=== PATIENT | female | born 1950 | race Caucasian/White ===

== ENCOUNTER → 2024-05-27 | Outpatient (CLI) | payer MEDICARE, BC, SELFPAY ==
[2024-05-27 11:41] LABS: Basophils # (Auto) 0.1 Thou/mm3 (0.0-0.2); Basophils % (Auto) 1 % (0-2.5); Eosinophils # (Auto) 0.1 Thou/mm3 (0.0-0.5); Eosinophils % (Auto) 2 % (0-10); Hematocrit 40.1 % (36.0-46.0); Hemoglobin 13.3 g/dL (12.0-16.0); Immature Granulocytes % (Auto) 0 % (0-0); Immature Granulocytes Auto 0.02 Thou/mm3 (0.00-0.00); Lymphocytes # (Auto) 1.3 Thou/mm3 (1.0-4.8); Lymphocytes % (Auto) 19 % (10-50); Mean Corpuscular HGB Conc 33.2 g/dl (31.0-37.0); Mean Corpuscular Hemoglobin 30.7 pg (25.0-35.0); Mean Corpuscular Volume 93 fL (80-100); Monocytes # (Auto) 0.4 Thou/mm3 (0.0-0.8); Monocytes % (Auto) 6 % (0-12); Neutrophils # (Auto) 4.7 Thou/mm3 (1.8-7.7); Neutrophils % (Auto) 72 % (37-80); Nucleated Red Blood Cell % 0 /100 WBC (0); Platelet Count 260 Thou/mm3 (140-440); RDW Standard Deviation 44.1 fL (36.4-46.3); Red Blood Count 4.33 Miln/mm3 (4.00-5.20); White Blood Count 6.5 Thou/mm3 (3.6-11.0)
[2024-05-27 11:47] LABS: Glucose Estimated Average 151 mg/dL (80-131); Hemoglobin A1C 6.9 % Hgb (4.8-6.0)
[2024-05-27 11:54] LABS: T4 (Thyroxine) 9.1 mcg/dL (4.5-10.9)
[2024-05-27 12:11] LABS: Alanine Aminotransferase 25 U/L (10-49); Albumin, Serum 4.4 gm/dL (3.4-4.8); Albumin/Globulin Ratio 2.4 (1.2-2.2); Alkaline Phosphatase 105 U/L (46-116); Anion Gap 6 (7-16); Aspartate Amino Transferase 36 U/L (0-34); BUN/Creatinine Ratio 27 Ratio (12-20); Blood Urea Nitrogen 19 mg/dL (9-23); Calcium 9.4 mg/dL (8.3-10.6); Calcium (Corrected) 9.4 mg/dL (8.5-10.1); Carbon Dioxide 30.2 mMol/L (20.0-31.0); Cardiac Risk Estimate 2.1 RATIO (3.7-5.6); Chloride 106 mMol/L (98-107); Cholesterol 193 mg/dL (132-200); Creatinine (Component) 0.7 mg/dL (0.6-1.3); Globulin 1.8 gm/dL (2.3-3.5); Glucose 67 mg/dL (74-106); HDL Cholesterol 94 mg/dL (40-60); LDL Cholesterol,Calculated 85 mg/dL (0-130); Osmolality,Calculated 283 (275-295); Potassium 4.2 mMol/L (3.4-5.1); Sodium 142 mMol/L (136-145); Thyroid Stimulating Hormone 1.36 uIU/mL (0.55-4.78); Total Protein 6.2 gm/dL (5.7-8.2); Triglycerides 72 mg/dL (30-150); eGFR > 60 See Note
[2024-05-27 12:27] LABS: Bilirubin,Total 0.7 mg/dL (0.3-1.2)
== END | disposition home or self-care (01) ==
LOC: COPL 10:25
PROVIDERS: PCP Family Medicine; Referring Provider Family Medicine; Visit Provider Family Medicine
DX: E11.9 Type 2 diabetes mellitus without complications (principal); I10 Essential (primary) hypertension; E03.9 Hypothyroidism, unspecified; E78.2 Mixed hyperlipidemia
CPT/HCPCS: 36415; 80053; 80061; 83036; 84436; 84443; 85025

== ENCOUNTER → 2024-11-02 | Outpatient (CLI) | payer MEDICARE, BC, SELFPAY ==
--- NOTE | 2024-11-02 12:56 | XR_ITS ---
Examination: Shoulder,right, 3 views Technique: Shoulder AP internal rotation, AP external rotation, Y view shoulder, 3 views Exam date and time :November 02, 2024 1302 hours INDICATIONS: Right shoulder pain beginning 12 months ago. FINDINGS: Moderate osteoarthritis glenohumeral joint Mild calcific tendinitis No fracture or shoulder dislocation IMPRESSION: Moderate osteoarthritis glenohumeral joint Mild calcific tendinitis
== END | disposition home or self-care (01) ==
LOC: CDIM 12:49
PROVIDERS: PCP Family Medicine; Referring Provider Nurse Practitioner Family; Visit Provider Nurse Practitioner Family
DX: M19.011 Primary osteoarthritis, right shoulder (principal); M75.31 Calcific tendinitis of right shoulder
CPT/HCPCS: 73030

== ENCOUNTER → 2025-01-05 | Outpatient (CLI) | payer MEDICARE, BC, SELFPAY ==
[2025-01-05 10:23] LABS: T4 (Thyroxine) 10.8 mcg/dL (4.5-10.9)
[2025-01-05 10:27] LABS: Alanine Aminotransferase 53 U/L (10-49); Albumin, Serum 4.1 gm/dL (3.4-4.8); Albumin/Globulin Ratio 2.0 (1.2-2.2); Alkaline Phosphatase 90 U/L (46-116); Anion Gap 9 (7-16); Aspartate Amino Transferase 69 U/L (0-34); BUN/Creatinine Ratio 16 Ratio (12-20); Bilirubin,Total 0.7 mg/dL (0.3-1.2); Blood Urea Nitrogen 11 mg/dL (9-23); Calcium 8.8 mg/dL (8.3-10.6); Calcium (Corrected) 8.8 mg/dL (8.5-10.1); Carbon Dioxide 27.7 mMol/L (20.0-31.0); Chloride 108 mMol/L (98-107); Creatinine (Component) 0.7 mg/dL (0.6-1.3); Globulin 2.1 gm/dL (2.3-3.5); Glucose 121 mg/dL (74-106); Osmolality,Calculated 289 (275-295); Potassium 4.3 mMol/L (3.4-5.1); Sodium 145 mMol/L (136-145); Thyroid Stimulating Hormone 0.07 uIU/mL (0.55-4.78); Total Protein 6.2 gm/dL (5.7-8.2); eGFR > 60 See Note
[2025-01-05 10:31] LABS: Glucose Estimated Average 148 mg/dL (80-131); Hemoglobin A1C 6.8 % Hgb (4.8-6.0)
== END | disposition home or self-care (01) ==
LOC: COPL 09:07
PROVIDERS: PCP Family Medicine; Referring Provider Family Medicine; Visit Provider Family Medicine
DX: R41.89 Other symptoms and signs involving cognitive functions and awareness (principal); E03.9 Hypothyroidism, unspecified; E11.9 Type 2 diabetes mellitus without complications; I10 Essential (primary) hypertension
CPT/HCPCS: 36415; 80053; 83036; 84436; 84443

== ENCOUNTER 2025-02-13 13:30 | Emergency (ER) | payer MEDICARE, BC, SELFPAY ==
[2025-02-13 13:37] VITALS: BP 122/72; PULSE 89; RESP 19; TEMP 36.4; O2SAT 99
[2025-02-13 13:38] VITALS: PULSE 92; RESP 16; O2SAT 95; BMI 26.6
[2025-02-13 14:22] LABS: Basophils # (Auto) 0.0 Thou/mm3 (0.0-0.2); Basophils % (Auto) 1 % (0-2.5); Eosinophils # (Auto) 0.1 Thou/mm3 (0.0-0.5); Eosinophils % (Auto) 2 % (0-10); Hematocrit 40.1 % (36.0-46.0); Hemoglobin 13.5 g/dL (12.0-16.0); Immature Granulocytes Auto 0.01 Thou/mm3 (0.00-0.00); Lymphocytes # (Auto) 1.8 Thou/mm3 (1.0-4.8); Lymphocytes % (Auto) 38 % (10-50); Mean Corpuscular HGB Conc 33.7 g/dl (31.0-37.0); Mean Corpuscular Hemoglobin 30.5 pg (25.0-35.0); Mean Corpuscular Volume 91 fL (80-100); Monocytes # (Auto) 0.4 Thou/mm3 (0.0-0.8); Monocytes % (Auto) 8 % (0-12); Neutrophils # (Auto) 2.4 Thou/mm3 (1.8-7.7); Neutrophils % (Auto) 51 % (37-80); Nucleated Red Blood Cell # 0.00 Thou/mm3 (0.00-0.00); Nucleated Red Blood Cell % 0 /100 WBC (0); Platelet Count 225 Thou/mm3 (140-440); RDW Standard Deviation 42.5 fL (36.4-46.3); Red Blood Count 4.42 Miln/mm3 (4.00-5.20); White Blood Count 4.7 Thou/mm3 (3.6-11.0)
[2025-02-13 15:11] LABS: Acetaminophen < 2.0 mcg/mL (10.0-20.0); Alanine Aminotransferase 59 U/L (10-49); Albumin, Serum 4.1 gm/dL (3.4-4.8); Albumin/Globulin Ratio 2.2 (1.2-2.2); Alcohol, Blood Medical 249.7 mg/dL (0-10.0); Alkaline Phosphatase 90 U/L (46-116); Anion Gap 14 (7-16); Aspartate Amino Transferase 85 U/L (0-34); BUN/Creatinine Ratio 14 Ratio (12-20); Bilirubin,Total 0.5 mg/dL (0.3-1.2); Blood Urea Nitrogen 10 mg/dL (9-23); Calcium 9.7 mg/dL (8.3-10.6); Calcium (Corrected) 9.7 mg/dL (8.5-10.1); Carbon Dioxide 22.2 mMol/L (20.0-31.0); Chloride 107 mMol/L (98-107); Creatinine (Component) 0.7 mg/dL (0.6-1.3); Estimated Creatinine Clearance 71.8 mL/min (>60); Globulin 1.9 gm/dL (2.3-3.5); Glucose 160 mg/dL (74-106); Lipase 19 U/L (12-53); Osmolality,Calculated 286 (275-295); Potassium 3.8 mMol/L (3.4-5.1); Salicylate < 3.0 mg/dL; Sodium 143 mMol/L (136-145); Thyroid Stimulating Hormone 0.08 uIU/mL (0.55-4.78); Total Protein 6.0 gm/dL (5.7-8.2); eGFR > 60 See Note
--- NOTE | 2025-02-13 15:49 | PD.EDPSYCH ---
ED Psych RME/HPI General Chief Complaint: Psychiatric Symptoms Stated Complaint: OD Time Seen by Provider: 02/13/25 13:34 Source: patient and EMS Arrival date/time: 02/13/25 13:30 Mode of arrival: EMS Limitations: no limitations RME / HPI RME / HPI Narrative: 74 year old female who is brought in by EMS for reported suicide attempt. Patient states she drank 4 shots of [place] whiskey and took 2 tablets of Valium 10 mg 30 minutes prior to her arrival. 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 Her daughter was in this hospital and this morning. When asked why she took 2 tablets of valium patient responds I wanted to be with my daughter . Patient has known history of HTN, hypothyroidism, insulin dependant diabetes, and insomnia. Related Data Home Medications ?Medication ?Instructions ?Recorded ?Confirmed insulin glargine 100 unit/mL 35 unit subcut HS #0 vials 10/08/14 02/11/23 subcutaneous solution (Lantus U-100 Insulin) insulin lispro 100 unit/mL 10 - 25 unit subcut PRN #0 vials 10/08/14 02/11/23 subcutaneous solution (Humalog U-100 Insulin) levothyroxine 125 mcg tablet 125 mcg PO QDAY 03/14/18 02/11/23 (Synthroid) ezetimibe 10 mg tablet 10 mg PO QDAY 01/31/21 02/11/23 losartan 50 mg tablet 50 mg PO QDAY 01/31/21 02/11/23 Allergies Allergy/AdvReac Type Severity Reaction Status Date / Time codeine Allergy Severe VOMITING, Verified 02/13/25 13:50 NAUSEA Penicillins Allergy Severe Nausea Verified 02/13/25 13:50 phenytoin Allergy Mild Rash Verified 02/13/25 13:50 Review of Systems Review of Systems Systems Reviewed: All systems reviewed, normal except as documented ED Exam General Limitations: Present no limitations General appearance: Present alert and in no apparent distress Head Head exam: Present atraumatic Eye Eye exam: Present normal appearance, PERRL and EOMI ENT ENT exam: Present normal exam and normal oropharynx Neck Neck exam: Present normal inspection, full ROM and trachea midline Chest Chest inspection: Present normal inspection and symmetric chest wall rise Respiratory Respiratory exam: Present normal lung sounds bilaterally Cardiovascular Cardiovascular exam: Present regular rate, normal rhythm and normal heart sounds Abdominal Exam Abdominal exam: Present soft and normal bowel sounds Extremities Exam Extremities exam: Present normal inspection and full ROM Back Exam Back exam: Present normal inspection and full ROM Neurological Exam Neurological exam: Present alert and oriented X3 Psychiatric Psychiatric exam: Present depressed, agitated, anxious and other (patient is tearful, when she intially brougth in she was yelling I want to be my daughter and they killed her over and over. ) Skin Skin exam: Present warm, dry, intact and normal color Course Quality Measures none Orders Category Date Time Status 1798 Psychiatric Hold NOW Care 02/13/25 17:45 Ordered Consult Manager Medical Writing NOW Care 02/13/25 13:35 Active Suicide precautions NOW Care 02/13/25 13:35 Active Acetaminophen Stat Lab 02/13/25 14:10 Completed Alcohol, Blood Medical Stat Lab 02/13/25 14:10 Completed CBC Stat Lab 02/13/25 14:10 Completed CMP [Comprehensive Metabolic Panel] Stat Lab 02/13/25 14:10 Completed Drug Screen,Urine Stat Lab 02/13/25 18:54 Completed Lipase Stat Lab 02/13/25 14:10 Completed Salicylate Stat Lab 02/13/25 14:10 Completed TSH [Thyroid Stimulating Hormone] Stat Lab 02/13/25 14:10 Completed UA, C/S IF [Urinalysis, C/S if Indicated] Stat Lab 02/13/25 18:54 Completed Vital Signs Vital signs: Vital Signs Temperature 97.6 F 02/13/25 13:37 Pulse Rate 89 02/13/25 13:37 Respiratory Rate 19 02/13/25 13:37 Blood Pressure 122/72 02/13/25 13:37 Pulse Oximetry (%) 99 02/13/25 13:37 Oxygen Delivery Method Room Air 02/13/25 13:37 Psych MDM Narrative MDM Narrative:: 74 year old female who is brought in by EMS for reported suicide attempt. Patient states she drank 4 shots of [place] whiskey and took 2 tablets of Valium 10 mg 30 minutes prior to her arrival. 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 Her daughter was in this hospital and this morning. When asked why she took 2 tablets of valium patient responds I wanted to be with my daughter . Patient has known history of HTN, hypothyroidism, insulin dependant diabetes, and insomnia. During the ER course, gordo oneal was contacted and the recommendations were follow-up. Patient's alcohol level was found to be elevated at 249. Her CBC was unremarkable. Metabolic panel revealed hyperglycemia at 160, liver enzymes are elevated with AST of 85, ALT 59, alk phos within normal limits. TSH was 0.08. Patient has known hypothyroidism. During the ER course, patient symptoms did improve. She metabolized her alcohol and was answering questions appropriately. She was seen, evaluated, and cleared by her our social services director. Patient does have a close family network. She was accompanied at bedside with family. Her sister will stay with her temporarily. Family states they have cleared her home with any medications that she might potentially overdose on. Patient was advised to follow-up with her primary doctor. Seek follow-up appointments with therapy. Return to emergency room anytime for any worsening or emergent changes. Patient data External records reviewed:: EMS form Clinical information provided by:: patient and EMS Social determinants that could affect healthcare access:: none Patient has the following chronic illnesses:: Hypertension, hypothyroidism, diabetes How is presenting disease/condition affected by chronic disease/condition?: uneffected by Evaluation data The following diagnostics were reviewed and interpreted by me:: lab results Lab and/or radiology exams considered but not ordered:: n/a Interpretation Summary: Work was unremarkable with the exception of a positive alcohol screen Medications / Prescriptions Medications or Prescriptions considered but not ordered:: n/a Medication administrations:: n/a Consultations Consultation(s) initiated? (list below): Yes Diagnosis Psych Differential Diagnosis: acute psychosis, suicidal ideation, bipolar disorder, depression, drug-induced psychotic disorder and acute anxiety Most likely diagnosis given after review of the tests above:: Grief reaction, alcohol abuse, suicide ideation Admission Indicated Admission indicated?: not indicated Admission Request Was there a request for admission?: No Disposition Plan Disposition Plan: Discharge Discharge Attestation Discharge Attestation: The patient and all family members were given an opportunity to ask questions and understood the discharge instructions. Discharge instructions specifically effects, indications for sooner follow up or return to the emergency department, and the expected course of current diagnosis. Patient condition: Stable Discharge Plan Plan Patient Disposition: HOME (Self Care) Patient condition on transfer: Stable Prescriptions/Referrals Prescriptions/Med Rec: No Action insulin glargine [Lantus U-100 Insulin] 100 U/ML solution 35 unit Sub-Q HS Qty: 0 insulin lispro [Humalog U-100 Insulin] 100 U/ML solution 10 - 25 unit Sub-Q PRN Qty: 0 levothyroxine [Synthroid] 125 mcg Tablet 125 mcg PO QDAY losartan 50 mg tablet 50 mg PO QDAY Patient Comments: TAKE 1 TABLET BY MOUTH EVERY DAY ezetimibe 10 mg tablet 10 mg PO QDAY Patient Comments: TAKE 1 TABLET BY MOUTH EVERY DAY Referrals: No Primary/Family,Physician [Primary Care Provider] - In 1 week Problem List Clinical Impression: Suicidal ideation, Grief reaction, Alcohol abuse Patient/Caregiver Discharge Instructions Education Materials: ED Grief Reaction, Depression and Suicide Additional Instructions: - Contact your primary doctor on Saturday to schedule close follow-up appointment. - I do believe you benefit from follow-up appointments with a therapist for cognitive behavioral therapy. - Refrain from alcohol or substance abuse. - Please contact 911 or return to the emergency room at anytime for any worsening changes in school including increased thoughts of suicide. Print Language: Kazakh Stand Alone Forms: [employer] Award Info., Patient Portal Info Letter
[2025-02-13 17:00] VITALS: BP 127/70; PULSE 95; RESP 18; TEMP 36.3; O2SAT 97
--- NOTE | 2025-02-13 17:12 | PC.NURSE ---
POISON CONTROL AND [place] SPOKE OVER THE PHONE; NO FURTHER ORDERS AT THIS TIME.
[2025-02-13 17:55] VITALS: BP 135/67; PULSE 80; RESP 18; TEMP 36.6; O2SAT 100
--- NOTE | 2025-02-13 18:54 | PC.CC ---
Patient is a 74 year-old female who presents to the hospital for a mental health evaluation due to taking 2 tablets of valium and ingesting alcohol. AMFT Amber made [id number] contact with patient to complete assessment. AMFT introduced self, role, and reason for assessment. AMFT disclosed limits of confidentiality as well. Patient appeared alert and oriented to self, place, and situation. At bedside was patient?s son in law Krunal Prado [phone]. Patient made appropriate eye contact with this hand sign writer. Patients mood appeared to be euthymic and remained engaged in assessment, patient had good insight and judgement. No signs of delusions, paranoid or V/H. Patient reports her daughter in the morning and her plan was to go home and sleep rest. When she was unable to sleep Pt reports she had a couple drinks and took 2 valium tablets to sleep. Pt reports she did not have intention to end life and just needed to sleep. Patient had a [place] screening completed at the time of arrival at the hospital, the outcome was High Risk. Carbon Printer reviewed [place] scale that was completed at Pt arrival- Pt denied current plan/intent to end life, does not wish to , and is willing and wanting to safety plan. Carbon Printer engaged family member and reviewed [place] scale and role/resposibility of safety planning in order to ensure Pt safety and wellbeing, son in law Krunal Prado [phone] agreed to safety plan with Pt and hand sign writer and reported family is all in agreement to safety plan and had gone to Pt home and removed all sharps/medication in order to ensure safety and a family member will remain with Pt. Upon clinical consultation with [facility], Kezia Burt patient does meet criteria for 5150-Hold. AMFT communicated outcome with all adult parties and all are in agreement with safety planning. AMFT provided update ER doctor, business project analyst Alisa, and all in agreement to safety plan.
[2025-02-13 18:58] LABS: Collection Type, Urine Voided
[2025-02-13 19:04] LABS: Bilirubin,Urine Negative (Negative); Blood,Urine Negative (Negative); Clarity,Urine Clear (Clear/Hazy); Color,Urine Lt-Yellow (Lt Yel-Yel); Culture Indicated,Urine Not Indicated; Glucose, Urine Negative (Negative); Ketones,Urine 1+ (Negative); Leukocyte Esterase,Urine Negative (Negative); Nitrite,Urine Negative (Negative); PH,Urine 5.5 (5.0-7.0); Protein,Urine Negative (Neg - Trace); RBC,Urine 1 /hpf (0-3); Specific Gravity,Urine 1.009 (1.001-1.035); Squamous Epithelial Cell,Urine < 1 /hpf (0-5); Urobilinogen,Urine Negative mg/dL (0.0-1.0); WBC,Urine 1 /hpf (0-5)
[2025-02-13 20:03] VITALS: BP 135/65; PULSE 86; RESP 20; TEMP 37.1; O2SAT 93
[2025-02-13 21:16] LABS: Amphetamine/Methamp Scrn,U Negative (Negative); Barbiturate Screen,Urine Negative (Negative); Benzodiazepines Screen,Urine Positive (Negative); Benzoylecgonine Screen, Ur Negative (Negative); Fentanyl Screen,Urine Negative (Negative); Opiate Screen,Urine Negative (Negative); THC Screen,Urine Negative (Negative)
== END 2025-02-13 21:26 | disposition home or self-care (01) ==
PROVIDERS: Physician Assistant Medical; Emergency Provider Emergency Medicine
DX: R45.851 Suicidal ideations (principal); F43.20 Adjustment disorder, unspecified; E11.9 Type 2 diabetes mellitus without complications; E03.9 Hypothyroidism, unspecified; I10 Essential (primary) hypertension; G47.00 Insomnia, unspecified
CPT/HCPCS: 36415; 80053; 80307; 80320; 80329; 81001; 83690; 84443; 85025; 96127; 99284; G0480

== ENCOUNTER → 2025-04-06 | Outpatient (CLI) | payer MEDICARE, BC, SELFPAY ==
[2025-04-06 10:36] LABS: Alanine Aminotransferase 32 U/L (10-49); Albumin, Serum 4.4 gm/dL (3.4-4.8); Albumin/Globulin Ratio 1.8 (1.2-2.2); Alkaline Phosphatase 88 U/L (46-116); Anion Gap 9 (7-16); Aspartate Amino Transferase 60 U/L (0-34); BUN/Creatinine Ratio 19 Ratio (12-20); Bilirubin,Total 0.7 mg/dL (0.3-1.2); Blood Urea Nitrogen 15 mg/dL (9-23); Calcium 9.4 mg/dL (8.3-10.6); Calcium (Corrected) 9.4 mg/dL (8.5-10.1); Carbon Dioxide 28.8 mMol/L (20.0-31.0); Chloride 106 mMol/L (98-107); Creatinine (Component) 0.8 mg/dL (0.6-1.3); Globulin 2.4 gm/dL (2.3-3.5); Glucose 133 mg/dL (74-106); Osmolality,Calculated 289 (275-295); Potassium 4.5 mMol/L (3.4-5.1); Sodium 144 mMol/L (136-145); Total Protein 6.8 gm/dL (5.7-8.2); eGFR > 60 See Note
== END | disposition home or self-care (01) ==
LOC: COPL 09:31
PROVIDERS: PCP Family Medicine; Referring Provider Family Medicine; Visit Provider Family Medicine
DX: R74.01 Elevation of levels of liver transaminase levels (principal)
CPT/HCPCS: 36415; 80053

== ENCOUNTER → 2025-05-17 | Outpatient (CLI) | payer MEDICARE, BC, SELFPAY ==
--- NOTE | 2025-05-17 13:15 | XR_ITS ---
Examination: Screening digital mammography, bilateral Computer aided detection 3-D breast Tomosynthesis, bilateral Date and time of exam: May 17, 2025, 1315 hours, compared to mammograms dating to December 05, 2017 Indication: Screening Technique: Nonmagnified MLO, CC views of the breasts to been obtained, reconstructed from 3-D Tomosynthesis images. R2 computer aided detection program utilized for evaluation of suspicious masses and/or abnormal calcifications. 3-D Tomosynthesis images obtained. Findings: Scattered areas of fibroglandular density. Stable focal glandular asymmetry outer right breast No interval suspicious masses Impression: BI-RADS category II: Benign Findings. Recommend 1 year follow-up mammogram.
--- NOTE | 2025-05-17 13:30 | XR_ITS ---
Imitation: Bone densitometry Date and time of exam: 05/17/2025, 1337 hours Indication: Age-related osteoporosis without current current pathologic fracture Additional information: PREVIOUS BD 10/24/22, 2020, 2017, 2008, MENOPAUSE AGE 49, FX TO RIGHT SHOULDER AND LEFT FOREARM, DIABETIC, LEVOTHYROXINE X 30+ YEARS, VIT. D/CALCIUM X 20+ YEARS Technique: Lumbar spine and hip total bone mineralization values of an calculated. Peak reference and age match control results have been displayed. Findings: Lumbar spine total bone mineralization is 1.040 gm/cm2. This is 0.1 standard deviations below peak reference. This is 2.4 standard deviations above age-matched controls. Hip total bone mineralization is 0.743 gm/cm2 This is 1.6 standard deviations below peak reference. This is 0.2 standard deviations above age-matched controls Impression: There is normal mineralization on lumbar spine measurements. There is osteopenia based on hip measurements. Lumbar spine mineralization increased 7.0% compared to 10/24/2022. Hip mineralization increased 1.9% compared to 10/24/2022.
== END | disposition home or self-care (01) ==
LOC: CDIM 13:07
PROVIDERS: PCP Family Medicine; Referring Provider Family Medicine; Visit Provider Family Medicine
DX: Z12.31 Encounter for screening mammogram for malignant neoplasm of breast (principal); R92.323 Mammographic fibroglandular density, bilateral breasts; M85.89 Other specified disorders of bone density and structure, multiple sites
CPT/HCPCS: 77063; 77067; 77080

== ENCOUNTER → 2025-05-18 | Outpatient (CLI) | payer MEDICARE, BC, SELFPAY ==
--- NOTE | 2025-05-18 09:45 | XR_ITS ---
Examination: Abdomen sonogram, complete Date and time of exam: May 18, 2025, 1938 hours INDICATIONS: Elevated liver function test on laboratory examination 5 months ago. . Technique: Multiple real-time grayscale transabdominal sonographic images of the abdomen have been obtained. Findings: Normal gallbladder Common bile duct 0.6 cm no stones Pancreatic head 2.2 cm Aorta not enlarged Liver 13.2 cm fatty infiltration Normal hepatopetal portal vein. Patent IVC Right kidney 11.8 cm renal cortex 1.4 cm Left kidney 10.5 cm renal cortex 1.6 cm Moderate renal scar formation Spleen 9.3 cm IMPRESSION: Normal gallbladder No common bile duct stones Liver normal size fatty infiltration no focal liver lesions
== END | disposition home or self-care (01) ==
LOC: CDIM 09:27
PROVIDERS: PCP Family Medicine; Referring Provider Family Medicine; Visit Provider Family Medicine
DX: K76.0 Fatty (change of) liver, not elsewhere classified (principal)
CPT/HCPCS: 76700